=== PATIENT | female | born 1975 | race Caucasian/White ===

== ENCOUNTER 2022-09-27 19:43 | Emergency (ER) | payer SELFPAY ==
--- NOTE | 2022-09-27 19:25 | ECG_ITS ---
APPROVED REPORT Exam: Resting ECG HR:77 bpm ECG Measurements Heart Rate 77 AXES ME 148 P 78 QRSd 93 QRS 74 QT 365 T 68 QTc 397 Conclusion SINUS RHYTHM POSSIBLE RIGHT VENTRICULAR CONDUCTION DELAY [RSR (QR) IN V1/V2] MODERATE ST DEPRESSION [0.05+ mV ST DEPRESSION] ABNORMAL ECG UNCONFIRMED REPORT Electronically signed by : Timoteo Park MD 09/28/2022 16:58:06
[2022-09-27 19:44] VITALS: BP 137/83; PULSE 67; RESP 16; TEMP 37.2; O2SAT 97; BMI 20.5
--- NOTE | 2022-09-27 19:58 | XR_ITS ---
PROCEDURE INFORMATION: Exam: XR Chest Exam date and time: 09/27/2022 8:00 PM Age: 47 years old Clinical indication: Pain; Chest pressure; Additional info: Chest pain TECHNIQUE: Imaging protocol: Radiologic exam of the chest. Views: 2 views. COMPARISON: No relevant prior studies available. FINDINGS: Lungs: There is mild right upper lobe infiltrate. Mild stranding opacity noted in the bilateral lower lungs as well. Pleural spaces: Blunting of the costophrenic angle suggests a small amount of pleural fluid. Heart/Mediastinum: Unremarkable. No cardiomegaly. Bones/joints: Unremarkable. IMPRESSION: Mild right upper lobe infiltrate with mild bilateral lower lobe infiltrate versus atelectasis concerning for active pneumonitis. Suspected minimal bilateral pleural effusions.
[2022-09-27 20:09] LABS: Coronavirus 19, PCR Not Detected (NotDetected); Influenza B, PCR Not Detected (NotDetected); Microscopic, Urine URINE MICROSCOPIC (MICROSCOPIC)
--- NOTE | 2022-09-27 20:11 | HMH.EDCP ---
Discharge Plan Disposition Patient Disposition: Home, Self-Care Condition: Good Prescriptions Prescriptions: New doxycycline hyclate 100 mg tablet 100 mg PO BID 14 Days Qty: 28 0RF ondansetron 4 mg tablet,disintegrating 4 mg PO Q8H PRN (Reason: nausea and vomiting) 4 Days Qty: 12 0RF benzonatate 200 mg capsule 200 mg PO TID PRN (Reason: cough) Qty: 20 0RF Referrals Follow up/Referrals: Provider,Referral, MD [Primary Care Provider] - See instructions Activity Restrictions/Add. Instructions Additional Instructions/Restrictions: You were evaluated in the emergency department today and diagnosed with pneumonia. Please follow-up with your primary care provider over the next 48 hours for reassessment. Take Tylenol and ibuprofen at home as needed for pain. We are sending in antibiotics, nausea medication, and an anticough medication to the pharmacy. Please pharmacy picking technician those and take them as prescribed. Return to the emergency department for any new or worsening symptoms. Clinical Impressions Clinical Impression: Pleuritis Pneumonia Qualifiers: Pneumonia type: due to unspecified organism Laterality: bilateral Lung location: unspecified part of lung Qualified Code(s): J18.9 - Pneumonia, unspecified organism Instructions Patient Instructions: Pneumonia-Adult, DI for Atypical Chest Pain Discharge ED Provider: Jennifer Fletcher Chest Pain HPI General Chief Complaint: Chest Pain Stated Complaint: chest pain Time Seen by Provider: 09/27/22 20:10 Mode of Arrival: Ambulatory Source of Information: Patient Limitations: No Limitations Description of Symptoms (Recalled from ER Triage Doc. by RN): pt states that she has been sick for the past 14 days with aches pains and that today she has left sided chest pain she states she believes is lung pain. the pt has a reported she has a hx of heart palpatations 5 years ago then stopped all care from a dr. History of Present Illness HPI narrative: This patient is a 47-year-old female who denies significant past medical history presented to the emergency department for evaluation of left-sided chest pain and generally feeling unwell. She reports that on , both she and her developed upper respiratory symptoms after being around family. Her got better, however she has had lingering symptoms. She states that she has had cough, chest heaviness, shortness of breath, generalized weakness, and fatigue. She complains of left-sided chest pain that is worse with movement and taking a deep breath. She also states that she is not able to lie on her left side because of this. She complains of nausea and vomiting states that she has not been able to eat or drink very much at all. She was taking [id number] medications at home, but she ran out a few days ago. At this time, nothing seems to make her symptoms better or worse. She states that she is a former smoker, she denies any history of cardiopulmonary issues. She also denies any significant fever, chills, abdominal pain, changes bowel movements, or other concerns. Related Data Previous Rx's Medication Instructions Recorded benzonatate 200 mg capsule 200 mg PO TID PRN cough #20 caps 09/27/22 doxycycline hyclate 100 mg tablet 100 mg PO BID 14 days #28 tabs 09/27/22 ondansetron 4 mg disintegrating 4 mg PO Q8H PRN nausea and 09/27/22 tablet vomiting 4 days #12 tabs Allergies Allergy/AdvReac Type Severity Reaction Status Date / Time No Known Allergies Allergy Verified 09/27/22 19:44 [facility] Disclaimer: The information contained in this section may have been updated after the patient was seen, as this information can be updated by other users. Social History Smoking Status: Former smoker alcohol intake: never current occupational status: employed Travel in the last 8 weeks: None ROS Obtained: Yes All systems reviewed & no additio
[2022-09-27 20:13] LABS: Appearance,Urine CLEAR (Clear); Basophils # 0.1 K/mm3 (0-0.2); Basophils % 0.5 % (0.1-2.0); Bilirubin,Urine Negative (Negative); Blood, Urine Negative (Negative); Color,Urine YELLOW (Yellow); Eosinophils % 0.2 % (0.1-12.0); Glucose,Urine (UA) Negative (Negative); Hematocrit 39.9 % (37.0-47.0); Hemoglobin 13.2 g/dL (12.2-16.2); Ketones,Urine Negative (Negative); Leukocyte Esterase,Urine Negative (Negative); Lymphocytes % 17.4 % (10-50); Mean Platelet Volume 8.2 fl (7.4-10.4); Monocytes # 0.4 K/mm3 (0.1-1.0); Monocytes % 3.4 % (1.7-9.3); Neutrophils # 9.2 K/mm3 (1.8-7.8); Neutrophils % 78.5 % (37.0-80.0); Nitrate,Urine Negative (Negative); Platelet Count 558 K/mm3 (142-424); Protein,Urine Negative (Negative); Red Blood Count 4.24 M/mm3 (4.20-5.40); Red Cell Distribution Width 13.2 % (11.5-17.5); Specific Gravity, Urine <= 1.005 (1.005-1.030); Urobilinogen,Urine 0.2 EU/dl (0.2); White Blood Count 11.7 K/mm3 (4.8-10.8)
[2022-09-27 20:15] LABS: Chloride 102 mmol/L (98-107)
[2022-09-27 20:16] LABS: Potassium 3.2 mmoL/L (3.5-5.1); Sodium 138 mmol/L (136-145)
[2022-09-27 20:17] LABS: Urine Pregnancy, HCG Qual. Negative (Negative)
[2022-09-27 20:18] LABS: Alanine Aminotransferase 27 U/L (12-78); Alkaline Phosphatase 87 U/L (38-126); Aspartate Amino Transferase 31 U/L (14-36); Bilirubin,Total 0.7 mg/dl (0.2-1.3); Blood Urea Nitrogen 5 mg/dl (7-17); Creatinine Clearance Estimated 114 mL/min (50-200); Estimated Glomerular Filt Rate 108 ml/min (>60); GFR (African American) 131 ML/MIN (>60)
[2022-09-27 20:19] LABS: Albumin/Globulin Ratio 1.3 (1.1-1.8); Anion Gap 13.2 mEq/L (5-15); Calcium 8.9 mg/dl (8.4-10.2); Carbon Dioxide 26 mmol/L (22.0-30.0); Globulin 3.2 g/dL (1.3-3.2); Glucose 112 mg/dl (74-100); Total Protein,Serum 7.2 g/dl (6.3-8.2)
[2022-09-27 20:38] LABS: Troponin I < 0.01 ng/ml (0.00-0.034)
[2022-09-27 20:47] LABS: WBC,Urine Occasional #/hpf (0-3)
[2022-09-27 21:35] LABS: Influenza A, PCR Detected (NotDetected)
[2022-09-27 21:46] VITALS: BP 115/74; PULSE 61; PULSE 67; RESP 16; TEMP 37.2; O2SAT 97
== END 2022-09-27 21:48 | disposition home or self-care (01) ==
PROVIDERS: Emergency Provider Emergency Medicine
DX: J18.9 Pneumonia, unspecified organism (principal); R09.1 Pleurisy; R07.89 Other chest pain; Z87.891 Personal history of nicotine dependence; Z20.822 Contact with and (suspected) exposure to COVID-19
CPT/HCPCS: 71046; 80053; 81001; 81025; 84484; 85025; 93005; 96361; 96374; 96375; 99285; C9803; J2405; U0003; U0005

== ENCOUNTER → 2022-11-15 12:58 | Outpatient (CLI) | payer MEDICAID, SELFPAY ==
--- NOTE | 2022-11-15 13:01 | US_ITS ---
FINAL REPORT CLINICAL HISTORY: .rt side painh FINDINGS: Transvaginal sonographic images of the pelvis were obtained. The uterus measures 9.9 x 6.0 x 4.3 cm. The endometrium measures 9 mm, which is within normal limits. No uterine mass is identified. The right ovary measures 3.9 cm in length and left ovary measures 2.8 cm in length. Normal blood flow seen to the ovaries. There is a 9 mm right ovarian cyst. There is no evidence of free fluid. There is a heterogeneous area in the right inguinal region at the site of pain which is worrisome for a small hernia. IMPRESSION: Right ovarian cyst. Heterogeneous area in the right inguinal region at the site of pain is worrisome for a small hernia. CT may be helpful. Reviewed, Interpreted and Dictated by Sravan Zheng III, MD Transcribed by Tila Vaz Authenticated and [facility]
== END ==
PROVIDERS: PCP Family Medicine; Visit Provider Family Medicine
DX: R10.31 Right lower quadrant pain (principal)
CPT/HCPCS: 76830

== ENCOUNTER → 2022-11-26 12:08 | Outpatient (CLI) | payer MEDICAID, SELFPAY ==
--- NOTE | 2022-11-26 12:12 | XR_ITS ---
FINAL REPORT CLINICAL HISTORY: pneumonia, hx smoker FINDINGS: PA and lateral views of the chest are obtained. There is no prior exam for comparison. The cardiac and mediastinal silhouettes are within normal limits. The lungs are clear. There is no pleural effusion, pneumothorax, or acute osseous abnormality. IMPRESSION: No radiographic evidence of acute cardiac or pulmonary disease. Reviewed, Interpreted and Dictated by Christy Mcintosh MD Transcribed by Damari Rhodes Authenticated and [facility]
== END ==
PROVIDERS: PCP Family Medicine; Visit Provider Family Medicine
DX: J18.9 Pneumonia, unspecified organism (principal)
CPT/HCPCS: 71046

== ENCOUNTER → 2022-12-10 13:12 | Outpatient (CLI) | payer MEDICAID, SELFPAY ==
--- NOTE | 2022-12-10 13:15 | CT_ITS ---
FINAL REPORT TECHNIQUE: After the administration of IV contrast, axial images were obtained through the pelvis by computed tomography. Sagittal and coronal reformatted images were obtained and reviewed. This study was performed with techniques to keep radiation doses as low as reasonably achievable (ALARA). Individualized dose reduction techniques using automated exposure control or adjustment of mA and/or kV according to the patient's size were employed. CLINICAL HISTORY: r/o right inguinal hernia, rlq pain FINDINGS: The appendix is normal. There is a 16 mm corpus luteum cyst in the right ovary. There are prominent para uterine veins which are nonspecific but can be seen with pelvic congestion syndrome. No inguinal hernia is identified. Small inguinal nodes are seen. IMPRESSION: No inguinal hernia identified. Prominent para uterine veins which can be seen with pelvic congestion syndrome. Reviewed, Interpreted and Dictated by Sravan Zheng III, MD Transcribed by Damari Rhodes Authenticated and [facility]
== END ==
PROVIDERS: PCP Family Medicine; Visit Provider Family Medicine
DX: R10.31 Right lower quadrant pain (principal); R93.89 Abnormal findings on diagnostic imaging of other specified body structures
CPT/HCPCS: 72193; Q9967

== ENCOUNTER → 2022-12-28 13:33 | Outpatient (CLI) | payer MEDICAID, SELFPAY ==
[2022-12-28 13:46] LABS: MANUAL DIFFERENTIAL MANUAL DIFFERENTIAL (MANUAL DIFF); Microscopic, Urine URINE MICROSCOPIC (MICROSCOPIC)
[2022-12-28 14:50] LABS: Basophils # 0.1 K/mm3 (0-0.2); Basophils % 0.7 % (0.1-2.0); Eosinophils # 0.1 K/mm3 (0.0-0.4); Eosinophils % 0.8 % (0.1-12.0); Hematocrit 44.9 % (37.0-47.0); Hemoglobin 14.6 g/dL (12.2-16.2); Lymphocytes # 1.6 K/mm3 (0.7-4.5); Lymphocytes % 18.6 % (10-50); Mean Corpuscular HGB Conc 32.6 g/dL (31.8-35.4); Mean Corpuscular Hemoglobin 30.9 pg (27.0-31.2); Mean Platelet Volume 7.9 fl (7.4-10.4); Monocytes # 0.3 K/mm3 (0.1-1.0); Monocytes % 3.8 % (1.7-9.3); Neutrophils # 6.6 K/mm3 (1.8-7.8); Neutrophils % 76.1 % (37.0-80.0); Platelet Count 335 K/mm3 (142-424); Red Blood Count 4.73 M/mm3 (4.20-5.40); Red Cell Distribution Width 13.8 % (11.5-17.5); White Blood Count 8.7 K/mm3 (4.8-10.8)
[2022-12-28 15:23] LABS: Chloride 103 mmol/L (98-107); Potassium 4.6 mmoL/L (3.5-5.1); Sodium 134 mmol/L (136-145)
[2022-12-28 15:25] LABS: Alanine Aminotransferase 18 U/L (12-78); Blood Urea Nitrogen 13 mg/dl (7-17); Estimated Glomerular Filt Rate 90 ml/min (>60); GFR (African American) 109 ML/MIN (>60)
[2022-12-28 15:26] LABS: Albumin Level 4.6 g/dl (3.5-5.0); Albumin/Globulin Ratio 1.8 (1.1-1.8); Alkaline Phosphatase 72 U/L (38-126); Anion Gap 11.6 mEq/L (5-15); Aspartate Amino Transferase 27 U/L (14-36); Bilirubin,Total 0.8 mg/dl (0.2-1.3); Calcium 9.5 mg/dl (8.4-10.2); Carbon Dioxide 24 mmol/L (22.0-30.0); Cholesterol 290 mg/dl (140-200); Globulin 2.6 g/dL (1.3-3.2); Glucose 104 mg/dl (74-100); Total Protein,Serum 7.2 g/dl (6.3-8.2); Triglycerides 79 mg/dl (30-150); VLDL Cholesterol 16 mg/dL (0-40)
[2022-12-28 15:27] LABS: HDL Cholesterol 73 mg/dl (40-60)
[2022-12-28 15:37] LABS: Direct LDL Cholesterol 190.66 mg/dL (100-129)
[2022-12-28 15:57] LABS: Thyroid Stimulating Hormone 1.72 uIU/mL (0.465-4.68)
[2022-12-28 16:15] LABS: Appearance,Urine SL CLOUDY (Clear); Bilirubin,Urine Negative (Negative); Blood, Urine 2+ (Negative); Color,Urine YELLOW (Yellow); Glucose,Urine (UA) Negative (Negative); Ketones,Urine Negative (Negative); Leukocyte Esterase,Urine TRACE (Negative); Nitrate,Urine Negative (Negative); Protein,Urine Negative (Negative); Specific Gravity, Urine 1.015 (1.005-1.030); Urobilinogen,Urine 0.2 EU/dl (0.2)
[2022-12-28 16:18] LABS: Hemoglobin A1C 5.2 % (4.0-6.0)
[2022-12-28 16:38] LABS: Amorphous Sediment,Urine 1+ /lpf; Bacteria,Urine Trace /lpf; Urine Pregnancy, HCG Qual. Negative (Negative); WBC,Urine Occasional #/hpf (0-3)
[2022-12-28 16:50] LABS: Lymphocytes % 17 % (10-50); Monocytes % 5 % (2-9); Neutrophils % 77 % (42-76); Platelet Estimate Normal; RBC Morphology Normal; Total Cells Counted 100
== END ==
PROVIDERS: Surgery; PCP Family Medicine; Visit Provider Family Medicine
DX: Z01.818 Encounter for other preprocedural examination (principal); K40.90 Unilateral inguinal hernia, without obstruction or gangrene, not specified as recurrent; R10.31 Right lower quadrant pain; R11.0 Nausea; F32.A Depression, unspecified; F41.9 Anxiety disorder, unspecified; H69.80 Other specified disorders of Eustachian tube, unspecified ear; J18.9 Pneumonia, unspecified organism; R35.0 Frequency of micturition; R73.09 Other abnormal glucose; Z13.220 Encounter for screening for lipoid disorders; Z87.42 Personal history of other diseases of the female genital tract
CPT/HCPCS: 36415; 80053; 80061; 81001; 81025; 83036; 84443; 85007; 85014; 85018; 85048; 85049; 87086

== ENCOUNTER 2022-12-30 06:14 | Day surgery (SDC) | payer MEDICAID, SELFPAY ==
[2022-12-30] VITALS (14 sets, daily range): BP systolic 103–142; BP diastolic 57–92; PULSE 63–82; RESP 14–21; TEMP 36.1–43; O2SAT 92–100; BMI 22.0
--- NOTE | 2022-12-30 07:08 | EXP.ANES.CKL ---
[facility] Disclaimer: The information contained in this section may have been updated after the patient was seen, as this information can be updated by other users. Medical History Anxiety and depression History of abnormal cervical Pap smear Surgical History History of tonsillectomy Family History Father Cancer Mother Diabetes Hypertension Social History Smoking Status: Current every day smoker tobacco type: e-cigarettes alcohol intake: never substance use type: denies use current occupational status: unemployed Travel in the last 8 weeks: None marital status: number of children: 2 number of grandchildren: 4 [facility] Anesthesia Checklist Patient Identification Patient Identification: Arm Band and Verbal (Name & ) Structural Data Admitted From: Home Planned Operative Procedure/s: Inguinal hernia repair Consent for Planned Operative Procedure(s) Verified: Yes NPO Status Verified Time NPO: 00:00 Chart Verification Results Verified: HCG Additional verifications Anesthesia Reactions: No Hx Blood Transfusions: No Blood Transfusion Reaction: No Airway Assessment C-Spine Mobility Assessed: Yes TMJ Mobility Assessed: Yes Dentition: Good Dentition Neurological Assessment Level of Consciousness: Awake Hx Seizures: No Numbness or tingling in extremities: No Anesthesia Plan Anesthesia Risk discussed: Yes Anesthesia Plan: Verified ASA Class: II Anesthesia Type: General
--- NOTE | 2022-12-30 09:09 | EXP.OP.NOTE ---
Date of procedure: 12/30/22 Pre-op Diagnosis:: Right inguinal hernia Post-op Diagnosis:: Same Procedure performed:: Open right inguinal hernia repair Surgeon:: Eliezer Esparza MD GRADES 9 THROUGH 12 TEACHER:: Mahi Manzo Anesthesia: GETA Estimated blood loss (mL): 15 Operative findings:: Severe soft tissue thickening/stranding throughout canal Direct and indirect defect Operative note:: After informed consent was obtained the patient was taken to the operating room and placed in the supine position. General anesthesia was induced and her abdomen/groin was prepped and draped in a sterile fashion. After infiltration local anesthetic an oblique right groin incision was made. A combination of sharp dissection and electrocautery were utilized to transect through Lise's fascia to the level of the external aponeurosis. The external aponeurosis was then sharply opened. The contents of the canal were carefully elevated. Soft tissue thickening throughout the canal was noted. The contents of the canal/round ligament were densely adhered to all surrounding tissue. A fingertip indirect defect and a 1.5 cm direct defect were noted. A large PerFix plug was placed in each defect and secured with interrupted Ethibond. The PerFix overlay then was secured to the shelving edge inferiorly and fascial margin superiorly with interrupted Ethibond. The external aponeurosis was reapproximated with running 2-0 Vicryl. Lise's fascia was closed in the same manner. Skin was then reapproximated with running 3-0 Monocryl STRATAFIX. Dressings were applied and patient was transferred to recovery in stable condition. Condition: stable Disposition: PACU Specimens:: none Complications:: no immediate
--- NOTE | 2022-12-30 09:19 | EXP.ANES.I ---
[facility] Anesthesia Record Part I Anesthesia Record I Intake, IV Amount: 1,000 Estimated blood loss (mL): 10 Urine output (mL): 200 Blood Pressure: 109/64 SaO2: 93 Pulse Rate: 77 Respiratory Rate: 18 Temperature: 97.6 F Patient is:: Drowsy and Oral/Nasal airway Stable to PACU at:: 09:18
[2022-12-30 15:28] LABS: Microscopic,Cath URINE MICROSCOPIC (MICROSCOPIC)
[2022-12-30 15:43] LABS: Appearance,Urine/Cath CLEAR (Clear); Bilirubin,Cath Negative (Negative); Blood, Urine/Cath Negative (Negative); Color,Urine/Cath YELLOW (Yellow); Glucose,Urine/Cath (UA) Negative (Negative); Ketones,Urine/Cath Negative (Negative); Leukocyte Esterase,Cath Negative (Negative); Nitrate,Cath Negative (Negative); Protein,Urine/Cath Negative (Negative); Urobilinogen,Cath 0.2 EU/dl (0.2)
[2022-12-30 16:12] LABS: Bacteria,Urine/Cath TRACE /lpf; RBC,Urine/Cath Occasional # /hpf (0-3)
--- NOTE | 2022-12-31 09:40 | P.PNANES_ITS ---
[facility] Anesthesia Record Part II Anesthesia Record Part II Discharge Time: 09:48 Destination: [facility] PACU nurse assessment reviewed?: Yes Patient Condition:: Good Anesthesia Complications:: None Swallowing reflex intact?: Yes Cyanosis?: No Blood Pressure: 118/57 Pulse Rate: 82 Temperature: 97.0 F Mental Status: Alert & Oriented Pain level:: 0 Nausea and/or vomitting:: None Intake, IV Amount: 1,000
[2022-12-31 09:41] VITALS: BP 118/57; PULSE 82; TEMP 36.1
== END 2022-12-30 11:15 | disposition home or self-care (01) ==
PROVIDERS: PCP Family Medicine; Visit Provider Surgery
PROC: (CPT 49505; principal; 2022-12-30 07:30)
DX: K40.90 Unilateral inguinal hernia, without obstruction or gangrene, not specified as recurrent (principal); F17.210 Nicotine dependence, cigarettes, uncomplicated
CPT/HCPCS: 49505; 81001; 96374; J2405

== ENCOUNTER 2022-12-31 13:30 | Outpatient (CLI) | payer MEDICAID, SELFPAY ==
[2022-12-31 13:40] VITALS: BP 145/82; PULSE 68; RESP 18; O2SAT 100
[2022-12-31 14:10] VITALS: BP 129/68; PULSE 61; RESP 18
== END 2022-12-31 14:15 | disposition home or self-care (01) ==
PROVIDERS: PCP Family Medicine; Visit Provider Surgery
DX: K40.90 Unilateral inguinal hernia, without obstruction or gangrene, not specified as recurrent (principal)
CPT/HCPCS: 96372

== ENCOUNTER → 2023-03-24 10:14 | Outpatient (CLI) | payer MEDICAID, SELFPAY ==
[2023-03-24 11:01] LABS: Basophils % 0.5 % (0.1-2.0); Eosinophils # 0.1 K/mm3 (0.0-0.4); Eosinophils % 1.1 % (0.1-12.0); Hematocrit 43.5 % (37.0-47.0); Hemoglobin 13.7 g/dL (12.2-16.2); Lymphocytes # 1.6 K/mm3 (0.7-4.5); Lymphocytes % 22.3 % (10-50); Mean Corpuscular HGB Conc 31.4 g/dL (31.8-35.4); Mean Corpuscular Hemoglobin 30.6 pg (27.0-31.2); Mean Corpuscular Volume 97.5 fl (81-99); Mean Platelet Volume 7.7 fl (7.4-10.4); Monocytes # 0.4 K/mm3 (0.1-1.0); Monocytes % 5.1 % (1.7-9.3); Neutrophils # 5.2 K/mm3 (1.8-7.8); Platelet Count 244 K/mm3 (142-424); Red Blood Count 4.47 M/mm3 (4.20-5.40); Red Cell Distribution Width 13.5 % (11.5-17.5); White Blood Count 7.3 K/mm3 (4.8-10.8)
[2023-03-24 11:21] LABS: Alanine Aminotransferase 21 U/L (12-78); Albumin Level 4.3 g/dl (3.5-5.0); Albumin/Globulin Ratio 1.5 (1.1-1.8); Alkaline Phosphatase 75 U/L (38-126); Anion Gap 14.1 mEq/L (5-15); Aspartate Amino Transferase 29 U/L (14-36); Bilirubin,Total 0.5 mg/dl (0.2-1.3); Blood Urea Nitrogen 16 mg/dl (7-17); Carbon Dioxide 25 mmol/L (22.0-30.0); Chloride 101 mmol/L (98-107); Estimated Glomerular Filt Rate 90 ml/min (>60); GFR (African American) 109 ML/MIN (>60); Globulin 2.8 g/dL (1.3-3.2); Glucose 142 mg/dl (74-100); Potassium 4.1 mmoL/L (3.5-5.1); Sodium 136 mmol/L (136-145); Total Protein,Serum 7.1 g/dl (6.3-8.2)
[2023-03-24 11:55] LABS: HCG,Quantitative < 2 mIU/ml (0-5.42)
== END ==
PROVIDERS: Visit Provider Obstetrics & Gynecology
DX: Z01.812 Encounter for preprocedural laboratory examination (principal); N92.0 Excessive and frequent menstruation with regular cycle
CPT/HCPCS: 36415; 80053; 84702; 85025

== ENCOUNTER 2023-04-01 07:44 | Day surgery (SDC) | payer MEDICAID, SELFPAY ==
[2023-03-28 16:43] VITALS: BMI 22.8
[2023-04-01] VITALS (12 sets, daily range): BP systolic 106–134; BP diastolic 58–82; PULSE 66–97; RESP 16–20; TEMP 36.4–43; O2SAT 94–98
--- NOTE | 2023-04-01 07:34 | P.PN_ITS ---
[facility] Disclaimer: The information contained in this section may have been updated after the patient was seen, as this information can be updated by other users. Medical History Anxiety and depression History of abnormal cervical Pap smear Surgical History History of inguinal hernia repair History of tonsillectomy Family History Father Cancer Mother Diabetes Hypertension Social History Smoking Status: Current every day smoker tobacco type: e-cigarettes alcohol intake: never substance use type: denies use current occupational status: unemployed Travel in the last 8 weeks: None marital status: number of children: 2 number of grandchildren: 4 [facility] Anesthesia Checklist Patient Identification Patient Identification: Arm Band and Verbal (Name & ) Structural Data Admitted From: Home Planned Operative Procedure/s: Hyst/D & C/LEEP Consent for Planned Operative Procedure(s) Verified: Yes NPO Status Verified Time NPO: 00:00 Chart Verification Results Verified: CBC, BMP and HCG Additional verifications Anesthesia Reactions: No Hx Blood Transfusions: No Blood Transfusion Reaction: No Airway Assessment C-Spine Mobility Assessed: Yes TMJ Mobility Assessed: Yes Dentition: Good Dentition Neurological Assessment Level of Consciousness: Awake Hx Seizures: No Numbness or tingling in extremities: No Anesthesia Plan Anesthesia Risk discussed: Yes Anesthesia Plan: Verified ASA Class: II Anesthesia Type: General
[2023-04-01 08:07] LABS: Urine Pregnancy, HCG Qual. Negative (Negative)
--- NOTE | 2023-04-01 09:41 | P.PNANES_ITS ---
[facility] Anesthesia Record Part I Anesthesia Record I Intake, IV Amount: 1,000 Estimated blood loss (mL): 5 Urine output (mL): 0 Blood Pressure: 106/58 SaO2: 98 Pulse Rate: 80 Respiratory Rate: 20 Temperature: 98 F Patient is:: Drowsy Stable to PACU at:: 09:40
--- NOTE | 2023-04-01 10:31 | EXP.ANES.II ---
[facility] Anesthesia Record Part II Anesthesia Record Part II Discharge Time: 10:20 Destination: [facility] (OP Surgery) PACU nurse assessment reviewed?: Yes Patient Condition:: Good Anesthesia Complications:: None Swallowing reflex intact?: Yes Cyanosis?: No Blood Pressure: 126/73 Pulse Rate: 83 Temperature: 98 F Mental Status: Alert & Oriented Pain level:: 0 Nausea and/or vomitting:: None Intake, IV Amount: 0
--- NOTE | 2023-04-01 13:07 | P.OP_ITS ---
Date of procedure: 04/01/23 Pre-op Diagnosis:: 1. Dsyfunctional uterine bleeding 2. Cervical dysplasia Post-op Diagnosis:: Same Procedure performed:: 1. D&C Hysteroscopy 2. Novasure Endometrial Ablation 3. LEEP Surgeon:: Elle Lockett MD AUTO BODY REPAIR TEACHER:: Mahi Geetim Anesthesia: GETA Estimated blood loss (mL): 5 Operative findings:: Grossly normal appearing uterine cavity Operative note:: The patient was taken to the OR where general anesthesia was administered without difficulty. She was prepped/draped in the normal sterile fashion in supine position. The cervix was dilated until hysteroscope could be accomodate d. The hysteroscope was introduced through the cervix into the uterus and the cavity surveyed. No fibroids or polyps were observed within the cavity. Sharp curettage was performed and the specimen was sent for pathology. The Novasure device was introduced into the uterus. The cavity length was measured at 4.5cm and width at 3.6cm, and the cavity assessment was successful. The Novasure was deployed and the endometrial ablation was completed in 114 seconds, without complication. All instruments were removed from her vagina and a coated speculum was placed in the vagina and the cervix positioned midline. The cervical cone was excised using a C-LETZ loop measuring 12mm radius by 10mm depth; the specimen was in a single piece. Sharp endocervical curettage was performed and sent as a seperate specimen. The remaining ectocervix surface was cauterized using a bovie ball as treatment for any residual dysplasia. The endocervical margins were cauterized using the bovie ball for hemostasis, with care taken to avoid cautery to the endocervical canal. The endocervical curette was placed in the canal to ensure patency. Monsel's solution was placed over the surgical site for additional hemostasis. Once hemostasis was achieved, all instruments were removed from the vagina. All counts were correct. The patient was taken out of lithotomy position, awakened from anesthesia and taken to the PACU in stable condition. EBL: 5cc Condition: stable Disposition: PACU Specimens:: 1. Endometrial curettings 2. Cervical Cone 3. Endocervical curettings Complications:: None
== END 2023-04-01 11:00 | disposition home or self-care (01) ==
PROVIDERS: Visit Provider Obstetrics & Gynecology
PROC: (CPT 58563; principal; 2023-04-01 09:15)
DX: N92.0 Excessive and frequent menstruation with regular cycle (principal); N72 Inflammatory disease of cervix uteri; N87.9 Dysplasia of cervix uteri, unspecified
CPT/HCPCS: 58563; 57522; 81025; 96374; J2405

== ENCOUNTER 2023-04-11 20:53 | Emergency (ER) | payer MEDICAID, SELFPAY ==
[2023-04-11 20:55] VITALS: BP 138/102; PULSE 111; RESP 28; TEMP 37; O2SAT 97; BMI 22.0
--- NOTE | 2023-04-11 21:06 | XR_ITS ---
PROCEDURE INFORMATION: Exam: XR Chest Exam date and time: 04/11/2023 9:11 PM Age: 48 years old Clinical indication: Left-sided; Patient HX: Left sided chest wall pain, smoker. Patient states she feels congested. ; Additional info: Dyspnea TECHNIQUE: Imaging protocol: Radiologic exam of the chest. Views: 1 view. COMPARISON: CR XR CHEST 2V 11/26/2022 12:41 PM FINDINGS: Lungs: Unremarkable. No consolidation. Hyperlucent changes are demonstrated. Increase in the lung volumes is demonstrated. Pleural spaces: Unremarkable. No pleural effusion. No pneumothorax. Heart/Mediastinum: Unremarkable. No cardiomegaly. Diaphragm: There is flattening of the hemidiaphragms. Bones/joints: Unremarkable. IMPRESSION: 1. No acute findings. 2. Mild changes of chronic obstructive pulmonary disease.
--- NOTE | 2023-04-11 21:07 | HMH.EDGENADL ---
Discharge Plan Disposition Patient Disposition: Home, Self-Care Prescriptions Prescriptions: New doxycycline hyclate 100 mg capsule 100 mg PO BID 10 Days Qty: 20 0RF benzonatate 100 mg capsule 100 mg PO TID PRN (Reason: cough) 5 Days Qty: 20 0RF albuterol sulfate 90 mcg/actuation HFA aerosol inhaler 4 inh inhalation Q4H PRN (Reason: shortness of breath or wheezing) Qty: 8.5 0RF Rx Instructions: 4 puffs every 4 hours for 48 hours then as needed for shortness of breath or wheezing following Referrals Follow up/Referrals: Provider,Referral, MD [Primary Care Provider] - See instructions Activity Restrictions/Add. Instructions Additional Instructions/Restrictions: Return with any worsening of your symptoms. Clinical Impressions Clinical Impression: Exacerbation of reactive airway disease, Bronchitis, Encounter for smoking cessation counseling Discharge ED Provider: Lilly Lockett General Adult HPI General Chief complaint: Upper Respiratory Infection Stated complaint: congestion Time Seen by Provider: 04/11/23 21:00 History of Present Illness HPI narrative: Patient is a 48-year-old female here with cough and congestion. She states she has over a [id number] history of smoking has been told she may have a history of COPD and over the last 2 weeks has had increasing cough sputum production wheezing and shortness of breath. Her symptoms are only worsening. She did have surgery 1 week ago for uterine ablation and a LEEP. She has a low bit of abdominal discomfort with coughing but nothing significant at baseline. No fevers or chills. She continues to smoke some specifically cigars and vaping but stopped cigarette smoking sometime ago. Related Data Previous Rx's Medication Instructions Recorded albuterol sulfate 90 mcg/actuation 4 inh inhalation Q4H PRN shortness 04/11/23 aerosol inhaler of breath or wheezing #8.5 grams benzonatate 100 mg capsule 100 mg PO TID PRN cough 5 days #20 04/11/23 caps doxycycline hyclate 100 mg capsule 100 mg PO BID 10 days #20 caps 04/11/23 Allergies Allergy/AdvReac Type Severity Reaction Status Date / Time No Known Allergies Allergy Verified 04/01/23 08:07 [facility] Disclaimer: The information contained in this section may have been updated after the patient was seen, as this information can be updated by other users. Medical History Anxiety and depression History of abnormal cervical Pap smear Surgical History History of inguinal hernia repair History of tonsillectomy Family History Father Cancer Mother Diabetes Hypertension Social History Smoking Status: Current every day smoker tobacco type: e-cigarettes alcohol intake: never substance use type: denies use current occupational status: unemployed Travel in the last 8 weeks: None marital status: number of children: 2 number of grandchildren: 4 ROS Obtained: Yes All systems reviewed & no additional complaints except as documented Physical Exam General General appearance: alert Respiratory Respiratory exam: Present wheezes and other (Oxygen saturations 98% on room air); Absent respiratory distress, accessory muscle use or prolonged expiratory phase Cardiovascular Cardiovascular exam: Present regular rate; Absent bradycardia Neurological Exam Neurological exam: Present alert and oriented X3 Medical Decision Making Jonh Inquiry Pt receiving controlled substance: No Vital Signs: 04/11/23 20:55 04/11/23 21:31 04/11/23 21:41 Temperature 98.6 F Temperature Source Oral Pulse Rate 99 H 102 H Pulse Rate [Left] 111 H Respiratory Rate 28 H Blood Pressure 134/81 Blood Pressure [Right Arm] 138/102 H Blood Pressure M
[2023-04-11 21:20] LABS: Coronavirus 19, PCR Not Detected (NotDetected); Influenza A, PCR Not Detected (NotDetected); Influenza B, PCR Not Detected (NotDetected)
[2023-04-11 21:31] VITALS: BP 134/81; PULSE 99; O2SAT 95
[2023-04-11 21:41] VITALS: PULSE 102
[2023-04-11 22:01] VITALS: BP 134/49; PULSE 77; O2SAT 95
[2023-04-11 23:16] VITALS: BP 134/69; PULSE 93; RESP 18; TEMP 36.8; O2SAT 97
== END 2023-04-11 23:00 | disposition home or self-care (01) ==
PROVIDERS: Emergency Provider Student in an Organized Health Care Education/Training Program
DX: J45.901 Unspecified asthma with (acute) exacerbation (principal); J40 Bronchitis, not specified as acute or chronic; F17.290 Nicotine dependence, other tobacco product, uncomplicated
CPT/HCPCS: 71045; 87636; 99283

== ENCOUNTER 2023-12-29 12:42 | Emergency (ER) | payer MEDICAID, SELFPAY ==
[2023-12-29 12:49] VITALS: BP 128/97; PULSE 64; RESP 20; TEMP 36.9; O2SAT 99; BMI 21.2
[2023-12-29 13:00] VITALS: BP 115/72; PULSE 69; O2SAT 97
[2023-12-29 13:30] VITALS: BP 110/70; PULSE 65; O2SAT 96
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
[2023-12-29 14:03] VITALS: BP 122/80; PULSE 66; RESP 18; TEMP 36.9; O2SAT 99
== END 2023-12-29 14:04 | disposition home or self-care (01) ==
PROVIDERS: Emergency Provider Emergency Medicine
DX: S05.00XA Injury of conjunctiva and corneal abrasion without foreign body, unspecified eye, initial encounter (principal); H57.04 Mydriasis; F17.290 Nicotine dependence, other tobacco product, uncomplicated; W50.4XXA Accidental scratch by another person, initial encounter
CPT/HCPCS: 99283

== ENCOUNTER 2024-02-01 11:19 | Outpatient (CLI) | payer MEDICAID, SELFPAY ==
[2024-02-01 11:27] LABS: Microscopic, Urine URINE MICROSCOPIC (MICROSCOPIC)
[2024-02-01 11:43] LABS: Basophils # 0.1 K/mm3 (0-0.2); Basophils % 0.8 % (0.1-2.0); Eosinophils # 0.1 K/mm3 (0.0-0.4); Eosinophils % 1.3 % (0.1-12.0); Hematocrit 46.4 % (37.0-47.0); Hemoglobin 15.3 g/dL (12.2-16.2); Lymphocytes # 1.8 K/mm3 (0.7-4.5); Lymphocytes % 15.7 % (10-50); Mean Corpuscular HGB Conc 33.1 g/dL (31.8-35.4); Mean Corpuscular Hemoglobin 32.3 pg (27.0-31.2); Mean Corpuscular Volume 97.7 fl (81-99); Mean Platelet Volume 7.6 fl (7.4-10.4); Monocytes # 0.5 K/mm3 (0.1-1.0); Monocytes % 4.4 % (1.7-9.3); Neutrophils # 8.7 K/mm3 (1.8-7.8); Neutrophils % 77.9 % (37.0-80.0); Platelet Count 234 K/mm3 (142-424); Red Blood Count 4.75 M/mm3 (4.20-5.40); Red Cell Distribution Width 13.4 % (11.5-17.5); White Blood Count 11.1 K/mm3 (4.8-10.8)
[2024-02-01 11:55] LABS: Appearance,Urine CLEAR (Clear); Bilirubin,Urine Negative (Negative); Blood, Urine Negative (Negative); Color,Urine YELLOW (Yellow); Glucose,Urine (UA) Negative (Negative); Ketones,Urine Negative (Negative); Leukocyte Esterase,Urine Negative (Negative); Nitrate,Urine Negative (Negative); Protein,Urine Negative (Negative); Specific Gravity, Urine 1.015 (1.005-1.030); Urobilinogen,Urine 0.2 EU/dl (0.2)
[2024-02-01 12:04] LABS: Chloride 103 mmol/L (98-107); Potassium 4.4 mmoL/L (3.5-5.1); Sodium 136 mmol/L (136-145)
[2024-02-01 12:07] LABS: Alanine Aminotransferase 26 U/L (12-78); Albumin Level 4.5 g/dl (3.5-5.0); Albumin/Globulin Ratio 1.6 (1.1-1.8); Alkaline Phosphatase 70 U/L (38-126); Anion Gap 13.4 mEq/L (5-15); Aspartate Amino Transferase 36 U/L (14-36); Bilirubin,Total 1.3 mg/dl (0.2-1.3); Blood Urea Nitrogen 14 mg/dl (7-17); Calcium 9.9 mg/dl (8.4-10.2); Carbon Dioxide 24 mmol/L (22.0-30.0); Estimated Glomerular Filt Rate 90 ml/min (>60); GFR (African American) 109 ML/MIN (>60); Globulin 2.8 g/dL (1.3-3.2); Glucose 109 mg/dl (74-100); Total Protein,Serum 7.3 g/dl (6.3-8.2)
[2024-02-01 12:12] LABS: Bacteria,Urine Trace /lpf; RBC,Urine Occasional #/hpf (0-3)
== END 2024-02-01 23:59 | disposition home or self-care (01) ==
LOC: LAB 11:21
PROVIDERS: Visit Provider Surgery
DX: R10.31 Right lower quadrant pain (principal)
CPT/HCPCS: 36415; 80053; 81001; 85025

== ENCOUNTER 2024-02-17 09:57 | Outpatient (CLI) | payer MEDICAID, SELFPAY ==
--- NOTE | 2024-02-17 09:58 | CT_ITS ---
FINAL REPORT TECHNIQUE: After the administration of oral and intravenous contrast, axial images were obtained through the abdomen and pelvis by computed tomography. The study was performed with techniques to keep radiation dose as low as reasonably achievable, (ALARA). Individual dose reduction techniques using automated exposure control or adjustment of mA and/or kV according to the patient's size were employed. CLINICAL HISTORY: Right lower quad pain COMPARISON: Prior CT of the pelvis dated 12/10/2022 FINDINGS: Abdomen: The lung bases are clear. The liver parenchyma is homogeneous. The gallbladder is present. The spleen, pancreas, adrenals and kidneys appear unremarkable. The aorta is normal in caliber. There is no free fluid or adenopathy. There are several slightly prominent small bowel loops present, however there is no evidence of obstruction. Pelvis: The appendix is unremarkable in appearance. The urinary bladder is unremarkable. There are 2 low-attenuation ovoid contiguous densities in the anterior right hemipelvis, well-circumscribed and immediately adjacent to the anterior pelvic wall musculature. The more superior of these low-attenuation densities measures 2.4 cm in diameter, the more inferior ovoid density measures 3 cm in diameter. These are best seen on images #[id number] of series 2. The adjacent anterior pelvic wall musculature appears thickened, a new finding when compared to the prior CT of the pelvis from November 2022. IMPRESSION: 2 low-attenuation ovoid densities in the anterior right hemipelvis as described above, contiguous with thickened anterior pelvic wall musculature. This may be inflammatory, posttraumatic, infectious, and clinical correlation is suggested. Reviewed, Interpreted and Dictated by David Deluca MD Transcribed by Loan Mueller Authenticated and [facility]
[2024-02-17] MEDS: SODIUM CHLORIDE 0.9% 10ML SYR (RAD ONLY) 10 ML IV (10:16)
[2024-02-17] MEDS: IOPAMIDOL-370 (76%);100ML BOTTLE 75 ML IV (10:16)
== END 2024-02-17 23:59 | disposition home or self-care (01) ==
LOC: RAD 09:58
PROVIDERS: PCP Nurse Practitioner Family; Visit Provider Surgery
DX: R10.31 Right lower quadrant pain (principal)
CPT/HCPCS: 74177; Q9967

== ENCOUNTER 2024-02-22 11:01 | Outpatient (CLI) | payer MEDICAID, SELFPAY ==
[2024-02-22 11:10] VITALS: BP 127/70; PULSE 68; RESP 18; TEMP 36.8; O2SAT 98
[2024-02-22] MEDS: KETOROLAC 30MG/ML VIAL 15 MG IM (11:10)
== END 2024-02-22 11:40 | disposition home or self-care (01) ==
LOC: INF 11:02
PROVIDERS: PCP Nurse Practitioner Family; Visit Provider Surgery
DX: R10.2 Pelvic and perineal pain (principal)
CPT/HCPCS: 96372

== ENCOUNTER 2024-05-07 07:59 | Outpatient (CLI) | payer MEDICAID, SELFPAY ==
--- NOTE | 2024-05-07 08:02 | CT_ITS ---
FINAL REPORT TECHNIQUE: After the administration of intravenous contrast, axial images were obtained through the abdomen and pelvis by computed tomography. This study was performed with technique to keep radiation doses as low as reasonably achievable, (ALARA). Individualized dose reduction techniques using automated exposure control or adjustment of the MA and/or KV according to the patient's size were employed. CLINICAL HISTORY: Right lower quad pain COMPARISON: 02/17/2024 FINDINGS: Abdomen: The lung bases are clear. The liver is normal in size and attenuation. The spleen is unremarkable. The adrenals are normal. The pancreas is unremarkable. The kidneys enhance appropriately. The aorta is normal in caliber. There is no free fluid or adenopathy. Mild vascular calcifications are noted. Pelvis: The appendix is normal. There is a new, presumed 28 mm left ovarian cyst and a 20 mm new cystic area in the posterior right pelvis also favored to represent ovarian cyst. There is a lobular fluid collection in the anterior right lower pelvis with posterior component measuring 30 mm. This is visually stable and of uncertain etiology. IMPRESSION: New, bilateral probable ovarian cysts. Fluid collection in the anterior right pelvis of uncertain etiology. Findings can be further evaluated with transvaginal pelvic ultrasound or CT. Reviewed, Interpreted and Dictated by Sravan Zheng III, MD Transcribed by Ninoska Reyez Authenticated and [facility]
[2024-05-07] MEDS: IOPAMIDOL-370 (76%);100ML BOTTLE 75 ML IV (08:24)
[2024-05-07] MEDS: SODIUM CHLORIDE 0.9% 10ML SYR (RAD ONLY) 10 ML IV (08:24)
== END 2024-05-07 23:59 | disposition home or self-care (01) ==
LOC: RAD 08:00
PROVIDERS: Visit Provider Surgery
DX: R10.31 Right lower quadrant pain (principal)
CPT/HCPCS: 74177; Q9967

== ENCOUNTER 2024-05-21 16:10 | Outpatient (CLI) | payer MEDICAID, SELFPAY ==
--- NOTE | 2024-05-21 16:13 | US_ITS ---
PROCEDURE: US TRANSVAGINAL CLINICAL INDICATION: ovarian cyst COMPARISON: CT CT ABDOMEN PELVIS W CON from 05/07/2024 FINDINGS: Transvaginal sonographic images of the pelvis were obtained. UTERUS: 8.8 cm x 5.0cmx 3.8 cm with a combined endometrial thickness of 5.6mm. There are several small nabothian cysts in the cervix. There is a small fluid collection in the upper cervix, lower uterine segment LEFT OVARY: 4.1cmx2.3cmx1.8cm with a volume of 8.7ml. There is a follicle in the left ovary measuring 1.6 cm x 1.5 cm x 1.2 cm. There is a 2nd follicle measuring 1.3 cm x 0.6 cm x 1.3 cm. RIGHT OVARY: 3.9 cmx 2.7 cmx1.5 cm with a volume of 8.5ml. There is a follicle in the right ovary measuring 1.9 cm by 1.2 cm x 1.2 cm. There is a 2nd small follicle measuring 0.7 cm x 1.0 cm. Within the larger follicle there appears to be a few small wall nodules. Both ovaries are seen and appear normal. Doppler flow to both ovaries are seen. There is no fluid in the cul-de-sac. IMPRESSION: 1. Anteverted uterus normal in shape and size. The endometrium is thin. 2. There is a small collection of fluid in the lower uterine segment/upper cervix. 3. Within the right ovary is a 1.9 cm follicle and within this follicle there are some wall nodules. Suggest an OVA 1 test. 4. Left ovary is seen and appears normal with 2 small follicles. 5. No fluid in the cul-de-sac Dictated by: Andrea Hernandez MD 05/21/2024 17:00 Andrea Hernandez MD in [place] 05/21/2024 17:00
[2024-05-21 18:31] LABS: Thyroid Stimulating Hormone 1.18 uIU/mL (0.465-4.68)
[2024-05-23 12:15] LABS: Estradiol 92.6 pg/mL (.); FSH 5.5 mIU/mL (.)
== END 2024-05-21 23:59 | disposition home or self-care (01) ==
LOC: RAD 16:11
PROVIDERS: Visit Provider Obstetrics & Gynecology
DX: N83.209 Unspecified ovarian cyst, unspecified side (principal); R23.2 Flushing
CPT/HCPCS: 36415; 76830; 82670; 83001; 84443

== ENCOUNTER 2024-08-15 14:29 | Emergency (ER) | payer MEDICAID, SELFPAY ==
[2024-08-15 14:31] VITALS: BP 140/79; PULSE 73; RESP 13; TEMP 36.6; O2SAT 97; BMI 22.8
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
[2024-08-15 14:54] VITALS: BP 112/79; PULSE 66; RESP 18; TEMP 36.7; O2SAT 99
== END 2024-08-15 14:57 | disposition home or self-care (01) ==
PROVIDERS: Emergency Provider Emergency Medicine
DX: S05.01XA Injury of conjunctiva and corneal abrasion without foreign body, right eye, initial encounter (principal); H57.11 Ocular pain, right eye; H53.149 Visual discomfort, unspecified; W20.8XXA Other cause of strike by thrown, projected or falling object, initial encounter; Y93.89 Activity, other specified; Y92.9 Unspecified place or not applicable
CPT/HCPCS: 99283